=== PATIENT | male | born 1995 | race Caucasian/White ===

== ENCOUNTER 2017-04-27 13:04 | Emergency (ER) | payer OTHER ==
[~2017-04-27] VITALS: Ht 180.3 cm; Wt 68.0 kg
--- NOTE | 2017-04-27 13:17 | ER.PDOC ---
General Chief Complaint: Requesting Medical Care Stated Complaint: SNORTED SOMETHING, EATING HIS ORGANS TRAVEL OUT OF US: No Time seen by MD: 13:17 Source: patient History of Present Illness Initial Comments Pt stated that he did meth today and felt his heart beating fast Allergies: Coded Allergies: No Known Allergies (Unverified , 04/27/17) Review of Systems Constitutional: see HPI Cardiovascular: see HPI All Other Systems: Reviewed and Negative Physical Exam General Appearance: Anxious EENT: eyes nml inspection Neck: Full Range of Motion Respiratory: lungs clear CVS: reg rate & rhythm Gastrointestinal: Non Tender Back: Normal Inspection Extremities: Normal Range of Motion Neurologic/Psychiatric: Alert Skin: Normal Color Results/Orders Results/Orders Laboratory Tests Test 04/27/17 13:48 White Blood Count 9.6 10^3/uL (4.5-11.0) Red Blood Count 5.04 10^6/uL (4.50-5.90) Hemoglobin 14.4 g/dL (13.9-16.3) Hematocrit 41.2 % (37.0-53.0) Mean Corpuscular Volume 81.7 fL (78-100) Mean Corpuscular Hemoglobin 28.6 pg (26-34) Mean Corpuscular Hemoglobin Concent 35.0 g/dL (33-37) Red Cell Distribution Width 12.8 % (11.5-14.5) Platelet Count 226 10^3/uL (150-400) Mean Platelet Volume 10.7 fL (7.8-11.0) Neutrophils (%) (Auto) 77.0 % (41.0-85.0) Lymphocytes (%) (Auto) 12.3 % (24.0-44.0) Monocytes (%) (Auto) 8.4 % (5.0-12.0) Neutrophils # (Auto) 7.4 10^3/uL (1.8-7.7) Lymphocytes # (Auto) 1.2 10^3/uL (1.0-4.8) Monocytes # (Auto) 0.8 10^3/uL (0.3-0.8) Absolute Immature Granulocyte (auto 0.02 10^3 u/L (0-2) Eosinophils % 1.9 % (0.0-5.0) Basophils % 0.2 % (0.0-0.2) Basophils # 0.0 10^3/uL (0.0-0.1) Eosinophil Count 0.2 10^3/uL (0.0-0.2) Sodium Level 142 mmol/L (132-145) Potassium Level 3.0 mmol/L (3.6-5.2) Chloride Level 105.0 mmol/L (96-109) Carbon Dioxide Level 24.7 mmol/L (20.0-32) Anion Gap 15.3 Blood Urea Nitrogen 9 mg/dL (7-18) Creatinine 0.96 mg/dL (0.59-1.40) Estimated GFR () 118.5 (>/=60) BUN/Creatinine Ratio 9.0 Glucose Level 114 mg/dL (70-110) Calcium Level 9.0 mg/dL (8.4-10.5) Total Bilirubin 0.7 mg/dL (0.2-1.0) Aspartate Amino Transf (AST/SGOT) 15 U/L (0-35) Alanine Aminotransferase (ALT/SGPT) 17 U/L (12-78) Alkaline Phosphatase 74 U/L (50-136) Creatine Kinase MB 1.3 ng/mL (0.5-3.6) Troponin I < 0.02 ng/mL (0.00-0.05) Total Protein 7.9 g/dL (6.4-8.2) Albumin 4.2 g/dL (3.4-5.0) Globulin 3.7 Percent Immature Gran (Cell Imm) 0.20 % (0.00-0.50) Administered Medications Medications (Trade) Dose Ordered Sig/Ceferino Route PRN Reason Start Time Stop Time Status Last Admin Dose Admin Lorazepam (Ativan) 1 mg OT STAT PO 04/27/17 15:15 04/27/17 15:16 DC 04/27/17 15:23 Departure Time of Disposition: 15:59 Disposition: 07 ELOPED Impression: Primary Impression: Methamphetamine abuse Condition: Stable Duration or Time Spent with Pa: 15 MITA BOOTHE MD Apr 27, 2017 13:17
--- NOTE | 2017-04-27 13:28 | NUR ---
ARRIVAL PT ARRIVED AMBULATORY TO ER 6. PT STATES "I INHALED A POWDER 10 HOURS AGO AND NOW IT'S EATING MY ORGANS". PT THEN STATES "WELL, I ACTUALLY SNORTED IT". PT STATES SNORTED AN UNKNOWN WHITE POWDERED SUBSTANCE THAT HE FOUND UNDERNEATH KITCHEN SINK. PT STATES "I DON'T KNOW WHAT IT WAS". PT APPEARS ANXIOUS. 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 NO ACUTE DISTRESS NOTED. ACCOMPANIED BY FRIEND. EDP NOTIFIED OF PT ARRIVAL.
[2017-04-27 13:40] VITALS: BP 155/108
[2017-04-27 13:54] LABS: BASOPHIL % 0.2 % (0.0-0.2); EOSINOPHIL # 0.2 10^3/uL (0.0-0.2); EOSINOPHIL % 1.9 % (0.0-5.0); HEMOGLOBIN 14.4 g/dL (13.9-16.3); LYMPHOCYTES # 1.2 10^3/uL (1.0-4.8); LYMPHOCYTES % 12.3 % (24.0-44.0); MEAN CELL HGB 28.6 pg (26-34); MEAN CORP VOLUME 81.7 fL (78-100); MEAN PLATELET VOLUME 10.7 fL (7.8-11.0); MONOCYTES # 0.8 10^3/uL (0.3-0.8); MONOCYTES % 8.4 % (5.0-12.0); NEUTROPHIL # 7.4 10^3/uL (1.8-7.7); RED CELL DISTRIBUTION WIDTH 12.8 % (11.5-14.5); WHITE BLOOD CELL 9.6 10^3/uL (4.5-11.0)
--- NOTE | 2017-04-27 14:10 | PCM.EKG ---
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
[2017-04-27 14:38] LABS: ALANINE AMINOTRANSFERASE(ML) 17 U/L (12-78); ALKALINE PHOSPHATASE 74 U/L (50-136); ASPARTATE AMINO TRANSFERASE 15 U/L (0-35); CARBON DIOXIDE 24.7 mmol/L (20.0-32); GLUCOSE 114 mg/dL (70-110)
--- NOTE | 2017-04-27 14:48 | DIREP ---
PROCEDURE:CHEST 2 VIEWS COMPARISON:None. INDICATIONS:PNA FINDINGS: LUNGS/PLEURA:No significant pulmonary parenchymal abnormalities or pleural effusion. CARDIAC:Normal cardiac silhouette and normal pulmonary vascularity. MEDIASTINUM:Normal. BONES:Normal. OTHER:No additional findings. CONCLUSION:No acute cardiopulmonary process. Dictated by: Laura Styles MD on 04/27/2017 at 02:47 PM
[2017-04-27] MEDS ORDERED: ATIVAN IM STA (15:12)
[2017-04-27] MEDS ORDERED: ATIVAN PO STA (15:15)
[2017-04-27] MEDS ORDERED: ATIVAN ONE (15:17)
--- NOTE | 2017-04-27 15:50 | NUR ---
ELOPED PT ELOPED AT THIS TIME.
== END 2017-04-27 15:50 | disposition left against medical advice (07) ==
LOC: ER 13:04
DX: F15.10 Other stimulant abuse, uncomplicated (principal)
CPT/HCPCS: 36415; 71046; 80053; 80307; 80324; 82553; 84484; 85025; 93005; 99285